=== PATIENT | female | born 1995 ===

== ENCOUNTER 2021-06-10 17:02 | Outpatient (REF) | payer BC, SELFPAY | END 2021-06-10 17:03 | disposition home or self-care (01) | LOC: HO.LNP 17:02 | PROVIDERS: Visit Provider Internal Medicine | DX: N39.0 Urinary tract infection, site not specified (principal); R10.2 Pelvic and perineal pain | CPT/HCPCS: 87086 ==

== ENCOUNTER 2021-09-27 08:14 | Outpatient (REF) | payer BC, SELFPAY ==
[2021-09-27 11:03] LABS: MANUAL DIFF FLAG NO
[2021-09-27 11:22] LABS: Alanine Aminotransferase 14 U/L (0-31); Albumin Level 3.9 g/dL (3.5-5.0); Alkaline Phosphatase 45 U/L (39-117); Anion Gap 10 (12-20); Aspartate Amino Transferase 17 U/L (5-31); Bilirubin Total 0.2 mg/dL (0.0-1.0); Blood Urea Nitrogen 14 mg/dL (9-16); Calcium 9.1 mg/dL (8.4-10.2); Carbon Dioxide 24 mmol/L (22-29); Chloride 109 mmol/L (96-108); Cholesterol 164 mg/dL; Estimated Glomerular Filt Rate > 60; Glucose Fasting 97 mg/dL (60-99); HDL Cholesterol 53 mg/dL; LDL Cholesterol Calculated 100 mg/dl; Potassium 4.5 mmol/L (3.3-5.1); Sodium 138 mmol/L (135-145); Total Protein 6.9 g/dL (6.5-8.0); Triglycerides 58 mg/dL
[2021-09-27 11:25] LABS: Basophils Percent Auto 0.6 % (0-2); Eosinophils Absolute Auto 0.3 X10*3/uL (0.0-0.4); Hematocrit 39.2 % (37.0-47.0); Hemoglobin 12.3 g/dl (12.0-16.0); Imm Gran Abs Auto 0.01 X10*3/uL (0.00-0.03); Imm Gran Pct Auto 0.2 % (0.0-0.4); Mean Corpuscular HGB Conc 31.4 g/dl (31.0-35.0); Mean Corpuscular Hemoglobin 25.4 pg (27.0-33.0); Mean Corpuscular Volume 80.8 fL (80.0-98.0); Mean Platelet Volume 10.1 fL (9.4-12.3); Monocytes Absolute Auto 0.3 X10*3/uL (0.1-1.2); Monocytes Percent Auto 6.4 % (2-11); Neutrophils Absolute Auto 2.3 x10*3/uL (2.0-8.3); Neutrophils Percent Auto 46.8 % (45-73); Platelet Count 361 X10*3/uL (160-400); Red Blood Count 4.85 X10*6/uL (4.20-5.50); Red Cell Distribution Width 12.9 % (11.0-16.0)
[2021-09-27 11:46] LABS: TSH reflex Free T4 0.82 uIU/mL (0.32-4.0)
== END 2021-09-27 08:15 | disposition home or self-care (01) ==
LOC: HO.HMGCLDS 08:14
PROVIDERS: PCP Internal Medicine; Visit Provider Internal Medicine
DX: Z00.01 Encounter for general adult medical examination with abnormal findings (principal); J45.40 Moderate persistent asthma, uncomplicated; E66.09 Other obesity due to excess calories
CPT/HCPCS: 36415; 80053; 80061; 84443; 85025

== ENCOUNTER → 2021-10-24 08:55 | Outpatient (BNVA) | payer BC, SELFPAY | PROVIDERS: PCP Internal Medicine ==

== ENCOUNTER 2021-12-05 12:23 | Outpatient (REF) | payer BC, SELFPAY | END 2021-12-05 12:24 | disposition home or self-care (01) | LOC: HO.10HDL 12:23 | DX: N39.0 Urinary tract infection, site not specified (principal) | CPT/HCPCS: 87086 ==

== ENCOUNTER → 2022-01-23 09:00 | Outpatient (BNVA) | payer BC, SELFPAY | PROVIDERS: PCP Internal Medicine | DX: Z13.89 Encounter for screening for other disorder (principal) ==

== ENCOUNTER 2022-05-20 08:36 | Outpatient (REF) | payer BC, SELFPAY ==
[2022-05-20 09:19] LABS: Binax Internal Control QC Valid; Binax Now Covid-19 Ag Negative (Negative); Binax Performed by: HO.BONILM
== END 2022-05-20 08:37 | disposition home or self-care (01) ==
LOC: HO.HMGCLDS 08:36
PROVIDERS: PCP Internal Medicine; Visit Provider Physician Assistant
DX: Z20.822 Contact with and (suspected) exposure to COVID-19 (principal); J32.9 Chronic sinusitis, unspecified
CPT/HCPCS: 87811; C9803

== ENCOUNTER → 2022-09-02 14:32 | Outpatient (BNVA) | payer BC, SELFPAY | PROVIDERS: PCP Internal Medicine; Visit Provider Urology | DX: N39.0 Urinary tract infection, site not specified (principal); Z91.14 Patient's other noncompliance with medication regimen | CPT/HCPCS: 51798 ==

== ENCOUNTER 2022-10-01 07:36 | Outpatient (REF) | payer BC, SELFPAY ==
[2022-10-01 11:26] LABS: MANUAL DIFF FLAG NO
[2022-10-01 11:40] LABS: Basophils Absolute Auto 0.1 X10*3/uL (0.0-0.2); Basophils Percent Auto 0.9 % (0-2); Eosinophils Absolute Auto 0.2 X10*3/uL (0.0-0.4); Eosinophils Percent Auto 4.2 % (0-4); Hematocrit 39.5 % (37.0-47.0); Hemoglobin 12.5 g/dl (12.0-16.0); Imm Gran Abs Auto 0.01 X10*3/uL (0.00-0.03); Imm Gran Pct Auto 0.2 % (0.0-0.4); Lymphocytes Absolute Auto 2.2 X10*3/uL (1.2-4.9); Mean Corpuscular HGB Conc 31.6 g/dl (31.0-35.0); Mean Corpuscular Hemoglobin 25.2 pg (27.0-33.0); Mean Corpuscular Volume 79.6 fL (80.0-98.0); Mean Platelet Volume 9.8 fL (9.4-12.3); Monocytes Absolute Auto 0.4 X10*3/uL (0.1-1.2); Monocytes Percent Auto 6.4 % (2-11); Neutrophils Absolute Auto 2.8 x10*3/uL (2.0-8.3); Neutrophils Percent Auto 49.3 % (45-73); Platelet Count 418 X10*3/uL (160-400); Red Blood Count 4.96 X10*6/uL (4.20-5.50); Red Cell Distribution Width 13.2 % (11.0-16.0); White Blood Count 5.7 X10*3/uL (4.8-10.8)
[2022-10-01 13:16] LABS: Alanine Aminotransferase 21 U/L (0-31); Alkaline Phosphatase 51 U/L (39-117); Anion Gap 12 (12-20); Aspartate Amino Transferase 21 U/L (5-31); Bilirubin Total 0.3 mg/dL (0.0-1.0); Blood Urea Nitrogen 14 mg/dL (9-16); Calcium 9.3 mg/dL (8.4-10.2); Carbon Dioxide 23 mmol/L (22-29); Chloride 108 mmol/L (96-108); Cholesterol 180 mg/dL; Estimated Glomerular Filt Rate > 60; Glucose Fasting 101 mg/dL (60-99); HDL Cholesterol 67 mg/dL; LDL Cholesterol Calculated 101 mg/dl; Potassium 4.4 mmol/L (3.3-5.1); Sodium 139 mmol/L (135-145); Total Protein 6.9 g/dL (6.5-8.0); Triglycerides 61 mg/dL
== END 2022-10-01 07:37 | disposition home or self-care (01) ==
LOC: HO.HMGCLDS 07:36
PROVIDERS: PCP Internal Medicine; Visit Provider Internal Medicine
DX: Z00.01 Encounter for general adult medical examination with abnormal findings (principal); E66.09 Other obesity due to excess calories; J45.40 Moderate persistent asthma, uncomplicated
CPT/HCPCS: 36415; 80053; 80061; 85025

== ENCOUNTER 2023-10-01 14:34 | Outpatient (AMB) | payer BC, SELFPAY ==
[2023-10-01 14:37] VITALS: BP 120/76; PULSE 81; O2SAT 99; BMI 34.6
--- NOTE | 2023-10-01 14:37 | A.OFFPC_ITS ---
Vital Signs 10/01/23 14:37 Height 5 ft 1 in Weight 183 lb 4 oz BMI 34.6 BP 120/76 Blood Pressure Location Lt brachial Position Sitting Pulse 81 Pulse Source Pulse Oximeter Pulse Oximetry (%) 99 Oxygen Delivery Method Room Air Intake Visit Reasons: annual Allergies shrimp Allergy (Unknown, Verified 10/01/23 14:39) anaphylaxis Medication List - Last Reconciled 10/01/23 by Jessica Ivy MD budesonide-formoterol 160-4.5 mcg/actuation (Symbicort) 2 puffs inhalation BID 30 days Tobacco use date assessed: 10/01/23 Dental Screening Dental Screen Date: 10/01/23 Did you have a dental visit in the last 12 months?: Yes Did you have a dental problem in the last 6 months where you did not have access to dental care?: No Was dental information given to patient?: Patient has dentist HPI annual HPI Details Patient is 27-year-old female came in today for physical exam Patient has asthma and is stable with inhaler she is using it once a day 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 Labs are needed to be done fasting Patient have impaired fasting sugar and her platelets were elevated last visit We will be repeating them. BMI is elevated patient is trying to lose weight Follow-up 1 year physical exam. [facility] Surgical History No pertinent past surgical history Family History Father Cancer Mother HTN (hypertension) CVD (cardiovascular disease) Diabetes mellitus Maternal Grandmother No problems noted. Maternal Grandfather No problems noted. Paternal Grandfather History of heart attack Paternal Grandmother No problems noted. Son No problems noted. Social History Housing: House Patient Tobacco Use Status: Former Tobacco user Years Smoked: 1 year e-Cigarette/Vaping Use: Never Used Current occupational status: employed Cognitive needs: No Hearing needs: No Vision needs: No Questionnaire PHQ-9 Over the last 2 weeks, how often have you been bothered by any of the following problems? 1. Little interest or pleasure in doing things: not at all 2. Feeling down, depressed, or hopeless: not at all 3. Trouble falling or staying asleep, or sleeping too much: not at all 4. Feeling tired or having little energy: several days 5. Poor appetite or overeating: not at all 6. Feeling bad about yourself - or that you are a failure or have let yourself or your family down: not at all 7. Trouble concentrating on things, such as reading the newspaper or watching te levision: not at all 8. Moving or speaking so slowly that other people could have noticed. Or the opposite - being so fidgety or restless that you have been moving around a lot more than usual: not at all 9. Thoughts that you would be better off or of hurting yourself in some way: not at all Total score: 1 Depression Screening Interpretation: Negative Depression Screening Done: Yes 16911 - PHQ-9 Billing: Yes Source: Developed by Drs. Jesse Hayes, Hudson Louis and colleagues, with an educational gutierrez from [employer]. Thrive Questionnaire Date Thrive assessed: 09/29/22 AUDIT C Alcohol Use Questionnaire (AUDIT-C) 1. How often do you have a drink containing alcohol?: Never 3. How often do you have six or more drinks on one occasion?: Never Total Score: 0 Score Reviewed/Action Taken: Yes CANDIE-7 AMB Questionnaire CANDIE-7 Date CANDIE - 7 assessed: 09/29/22 Source: Developed by Drs. Jesse Hayes, Hudson Louis and colleagues, with an educational gutierrez from [employer]. Review of Systems Const Denies chills, Denies fever(s) and Denies headache(s) Eyes Denies blurry vision ENT Denies headache(s), Denies nasal discharge, Denies nasal obstruction, Denies odynophagia and Denies sinus pain Card Denies chest pain at rest and Denies chest pain with activity Resp Denies cough and Denies hemoptysis GI Denies diarrhea, Denies odynophagia, Denies vomiting and Denies hematemesis Reports as per HPI Musc Denies abnormal gait Skin/Breast Reports as per HPI Neuro Denies Neuro-related abnormal movements, Denies Abnormal speech present, Denies abnormal gait, Denies headache(s) and Denies Sensory deficit (Neuro) Psych Denies mood swings and Denies paranoia Endo Reports as per HPI Burke/Lymph Reports as per HPI Aller/Immun Reports as per HPI Physical exam (Primary Care) Vital Signs: Last Vital Signs Pulse 81 10/01/23 14:37 BP 120/76 10/01/23 14:37 Pulse Ox 99 10/01/23 14:37 Oxygen Delivery Method Room Air 10/01/23 14:37 BMI result Body Mass Index 34.6 Tobacco/Smoking Status: Tobacco use Status Tobacco use date assessed 10/01/23 10/01/23 14:39 Patient Tobacco Use Status Former Tobacco user 10/01/23 14:39 e-Cigarette/Vaping Use Never Used 10/01/23 14:39 Depression Screening Interpretation: Negative Thrive Assessment: Date of Thrive Assessment Date Thrive assessed 09/29/22 10/01/23 14:39 Const General: cooperative, comfortable and no acute distress Orientation/consciousness: patient oriented x3 HENMT Head: Yes normocephalic and Yes atraumatic Eyes General: appearance normal, both eyes and all related structures Pupils: Equal, round and reactive pupils present EOM: EOMs intact bilaterally Neck Neck: Yes supple and No lymphadenopathy Thyroid: Thyroid normal Lymphatic: no lymphadenopathy noted Chest Breast/axilla palpation: normal palpation of the breasts Resp Effort & Inspection: normal respiratory effort and able to speak in complete sentences Auscultation: clear to auscultation bilaterally Cardio Heart sounds: S1 normal heart sound present and S2 normal heart sound present GI Palpation (GI): Soft to palpation and nontender Auscultation: normal bowel sounds General: Yes no CVA tenderness Back/Spine/Pelvis Back: no CVA tenderness Skin General skin exam: elasticity normal and turgor normal Neuro General: patient oriented x3 and gait normal Cranial nerves: Yes Equal, round and reactive pupils present Speech: No Abnormal speech present Sensory Exam: No Sensory deficit (Neuro) Coordination: tandem gait normal and Romberg test negative Extrem General: Yes normal exam except as noted and No edema Assessment and Plan Assessment & Plan (1) Encounter for general adult medical examination with abnormal findings: Code(s): Z00.01 - Encounter for general adult medical examination with abnormal findings (2) Obesity due to excess calories: Code(s): E66.09 - Other obesity due to excess calories Qualifiers: Body mass index: BMI 34.0-34.9 Obesity classification: adult class 1 (BMI 30 - 34.9) Serious obesity comorbidity presence: without serious comorbidity Qualified Code(s): E66.09 - Other obesity due to excess calories; Z68.34 - Body mass index [BMI] 34.0-34.9, adult (3) Asthma, moderate persistent: Code(s): J45.40 - Moderate persistent asthma, uncomplicated Qualifiers: Asthma complication type: uncomplicated Qualified Code(s): J45.40 - Moderate persistent asthma, uncomplicated (4) Impaired fasting blood sugar: Code(s): R73.01 - Impaired fasting glucose (5) Thrombocytosis, unspecified: Code(s): D75.839 - Thrombocytosis, unspecified Plan Patient is 27-year-old female came in today for physical exam Patient has asthma and is stable with inhaler she is using it once a day 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 Labs are needed to be done fasting Patient have impaired fasting sugar and her platelets were elevated last visit We will be repeating them. BMI is elevated patient is trying to lose weight Follow-up 1 year physical exam. Orders: Orders Complete Blood Count Auto Diff Today D47.3 - Essential (hemorrhagic) thrombocythemia, E66.09 - Other obesity due to excess calories, J45.40 - Moderate persistent asthma, uncomplicated, R73.01 - Impaired fasting glucose, Z00.01 - Encounter for general adult medical examination with abnormal findings Comprehensive Fowler. Panel Fast Today D47.3 - Essential (hemorrhagic) thrombocythemia, E66.09 - Other obesity due to excess calories, J45.40 - Moderate persistent asthma, uncomplicated, R73.01 - Impaired fasting glucose, Z00.01 - Encounter for general adult medical examination with abnormal findings Lipid Panel Today D47.3 - Essential (hemorrhagic) thrombocythemia, E66.09 - Other obesity due to excess calories, J45.40 - Moderate persistent asthma, uncomplicated, R73.01 - Impaired fasting glucose, Z00.01 - Encounter for general adult medical examination with abnormal findings Referrals [facility] Referral Z01.419 - Encounter for gynecological examination (general) (routine) without abnormal findings Coding Level of Care Code Est Pt Prev Care 18-39y([id number]) Diagnoses Encounter for general adult medical examination with abnormal findings Z00.01 Class 1 obesity due to excess calories without serious comorbidity with body mass index (BMI) of 34.0 to 34.9 in adult E66.09; Z68.34 Body mass index: BMI 34.0-34.9 Obesity classification: adult class 1 (BMI 30 - 34.9) Serious obesity comorbidity presence: without serious comorbidity Moderate persistent asthma without complication J45.40 Asthma complication type: uncomplicated Impaired fasting blood sugar R73.01 Thrombocytosis, unspecified D75.839
== END 2023-10-01 15:29 | disposition home or self-care (01) ==
PROVIDERS: Visit Provider Internal Medicine
DX: Z00.00 Encounter for general adult medical examination without abnormal findings (principal); E66.09 Other obesity due to excess calories; Z68.34 Body mass index [BMI] 34.0-34.9, adult; J45.40 Moderate persistent asthma, uncomplicated; R73.01 Impaired fasting glucose; D75.839 Thrombocytosis, unspecified
CPT/HCPCS: 99395

== ENCOUNTER 2023-10-14 09:05 | Outpatient (REF) | payer BC, SELFPAY ==
[2023-10-14 11:27] LABS: MANUAL DIFF FLAG NO
[2023-10-14 11:34] LABS: Basophils Percent Auto 0.4 % (0-2); Eosinophils Absolute Auto 0.2 X10*3/uL (0.0-0.4); Eosinophils Percent Auto 2.6 % (0-4); Hematocrit 42.1 % (37.0-47.0); Hemoglobin 13.6 g/dl (12.0-16.0); Imm Gran Abs Auto 0.01 X10*3/uL (0.00-0.03); Imm Gran Pct Auto 0.2 % (0.0-0.4); Lymphocytes Absolute Auto 2.4 X10*3/uL (1.2-4.9); Lymphocytes Percent Auto 42.5 % (20-40); Mean Corpuscular HGB Conc 32.3 g/dl (31.0-35.0); Mean Corpuscular Volume 77.4 fL (80.0-98.0); Mean Platelet Volume 10.7 fL (9.4-12.3); Monocytes Absolute Auto 0.3 X10*3/uL (0.1-1.2); Neutrophils Absolute Auto 2.8 x10*3/uL (2.0-8.3); Neutrophils Percent Auto 48.3 % (45-73); Platelet Count 309 X10*3/uL (160-400); Red Blood Count 5.44 X10*6/uL (4.20-5.50); Red Cell Distribution Width 12.8 % (11.0-16.0); White Blood Count 5.7 X10*3/uL (4.8-10.8)
[2023-10-14 11:52] LABS: Alanine Aminotransferase 20 U/L (0-31); Albumin Level 4.1 g/dL (3.5-5.0); Alkaline Phosphatase 53 U/L (39-117); Anion Gap 15 (12-20); Aspartate Amino Transferase 22 U/L (5-31); Bilirubin Total 0.3 mg/dL (0.0-1.0); Blood Urea Nitrogen 10 mg/dL (9-16); Calcium 9.3 mg/dL (8.4-10.2); Carbon Dioxide 22 mmol/L (22-29); Chloride 107 mmol/L (96-108); Cholesterol 168 mg/dL (<200); Estimated Glomerular Filt Rate > 60; Glucose Fasting 80 mg/dL (60-99); HDL Cholesterol 53 mg/dL (>40); LDL Cholesterol Calculated 104 mg/dL (<100); Potassium 4.5 mmol/L (3.3-5.1); Sodium 139 mmol/L (135-145); Total Protein 7.8 g/dL (6.5-8.0); Triglycerides 58 mg/dL (<150)
== END 2023-10-14 09:06 | disposition home or self-care (01) ==
LOC: HO.HMGCLDS 09:05
PROVIDERS: PCP Internal Medicine; Visit Provider Internal Medicine
DX: Z00.01 Encounter for general adult medical examination with abnormal findings (principal); E66.09 Other obesity due to excess calories; R73.01 Impaired fasting glucose; D47.3 Essential (hemorrhagic) thrombocythemia; J45.40 Moderate persistent asthma, uncomplicated
CPT/HCPCS: 36415; 80053; 80061; 85025

== ENCOUNTER 2023-11-17 11:04 | Outpatient (REF) | payer BC, SELFPAY ==
[2023-11-18 11:48] LABS: CT PCR NOT DETECTED (Not Detect.); NG PCR NOT DETECTED (Not Detect.)
[2023-11-18 14:07] LABS: BV Int Neg Control Negative (Negative); BV Int Pos Control Positive (Positive)
== END 2023-11-17 11:05 | disposition home or self-care (01) ==
LOC: HO.LAB 11:04
PROVIDERS: PCP Internal Medicine; Visit Provider Advanced Practice Midwife
DX: Z01.419 Encounter for gynecological examination (general) (routine) without abnormal findings (principal); Z20.2 Contact with and (suspected) exposure to infections with a predominantly sexual mode of transmission
CPT/HCPCS: 0353U; 87480; 87510; 87660; 88142

== ENCOUNTER 2023-11-17 11:04 | Outpatient (AMB) | payer BC, SELFPAY ==
--- OUTSIDE RECORDS SUMMARY | 2023-11-17 11:06 | XMS_ITS | Patient Health Record ---
Author Name Unknown Organization [facility] Address [address] [place] [address] Care Team Providers Care Stepdown Nurse Name Role Phone Jessica Ivy Primary Care Provider Unavailabl e ALLERGIES Allergen (clinical drug ingredient) Drug/Non Drug Allergy documented on EMR Reaction Allergy Type Onset Date Status Shellfish (FN) shrimp (uncoded) anaphylaxis Allergy Active REASON FOR REFERRAL No Information MEDICATIONS Medication SIG (Take, Route, Frequency, Duration) Notes Start Date End Date Status Albuterol Sulfate 108 (90 Base) MCG/ACT 1 puff as needed Inhalation every 4 hrs Active busPIRone HCl 5 MG 1 tablet Orally as needed Active Symbicort 160-4.5 MCG/ACT 2 puffs Inhala tion Twice a day Active SOCIAL HISTORY Sex Assigned At : Social History Observation Description Sex Assigned At Unknown PROBLEMS Problem Type ICD Code Onset Dates Problem Status W/U Status Risk SNOMED Code Notes Problem Hallux valgus of right foot (M20.11) Active confirmed 175355575 Problem Hallux valgus of left foot (M20.12) Active confirmed 148210372 PLAN OF TREATMENT Pending Test Test Name Order Date X ray : Foot, left 3v 11/06/2020 X ray : Foot, right 3v 11/06/2020 Insurance Providers Payer Name Payer Address Payer Phone Subscriber Number Group Number Insured Name Patient Relationship to Insured Coverage Start Date Coverage End Date Blue [employer] and Blue [facility] [address] [place] [phone] [id number] Suman Egan Self - patient is the insured MEDICAL (GENERAL) HISTORY Medical History History ICD Code Asthma Anxiety
--- NOTE | 2023-11-17 11:20 | A.OFFVIS_ITS ---
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 Program Eligibility Specialist Required: No Information Interpreted: clinical only Camera Operator: Camera Operator Present Allergies shrimp Allergy (Unknown, Verified 11/17/23 11:22) anaphylaxis Medication List - Last Reconciled 11/17/23 by Padma Sheth CNM budesonide-formoterol 160-4.5 mcg/actuation (Symbicort) 2 puffs inhalation BID 30 days Is last menstrual period known: Yes Last menstrual period: 10/30/23 Do you need a note to return to daycare/school/sports/work: No HPI 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 She is doing well she uses condoms for control she does not remember having any abnormal Paps though she thinks her last 1 was 3 years ago at [facility] in [place]. She has not really worried about any infections she and her partner of many years are considering conceiving another baby perhaps in late spring. 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 It is sort of regular cycles and has been trying to tell when she ovulates but she has not sure if the appt is accurate and she thought that it was when she gets a whitish discharge. [facility] Surgical History No pertinent past surgical history Family History Father Cancer Mother HTN (hypertension) CVD (cardiovascular disease) Diabetes mellitus Maternal Grandmother No problems noted. Maternal Grandfather No problems noted. Paternal Grandfather History of heart attack Paternal Grandmother No problems noted. Son No problems noted. Social History Housing: House Patient Tobacco Use Status: Former Tobacco user Years Smoked: 1 year e-Cigarette/Vaping Use: Never Used Current occupational status: employed Cognitive needs: No Hearing needs: No Vision needs: No Female Reproductive History Menstrual Age of Menarche: 10 Duration of menses: 6-7 days Date of last menstrual period: 10/30/23 control method: condoms Total pregnancies: 1 Full term: 1 Date of last pap smear: 10/18/21 (per patient ''neg'') History of abnormal pap smear: No Physical Exam Vital Signs: Last Vital Signs BP 128/70 11/17/23 11:21 BMI result Body Mass Index 34.4 Const General: healthy appearing, comfortable, no acute distress, well developed and alert Nutritional Appearance: average body habitus Orientation/consciousness: patient oriented x3 Limitations: no limitations HEENT Head: Yes normocephalic Neck Neck: Yes normal visual inspection Thyroid: Thyroid normal Chest Chest palpation & inspection: normal inspection of the chest Breast/axilla inspection: normal inspection of the breasts and normal inspection of the axillae Breast/axilla palpation: normal palpation of the breasts and normal palpation of the axillae Resp Effort & Inspection: normal respiratory effort GI Inspection: Yes normal to inspection, No Abdominal wall edema and No distended Palpation (GI): Soft to palpation and nontender Other: External exam within normal limits vagina pink and moist cervix multiparous with scant white discharge not really consistent with midcycle. Cervix mobile nontender uterus midposition not enlarged nontender no adnexal enlargement good tone with Kegel. General: Yes bladder normal to palpation External Female Exam: normal external appearance and normal appearance of the urethra Speculum Exam - Vagina: normal appearance of the vagina, normal palpation and normal vaginal discharge Speculum Exam - Cervix: normal appearance of the cervix, normal palpation and nontender Bimanual exam- vagina & uterus: normal bimanual exam, normal palpation, uterine size normal, bladder normal to palpation, consistency normal, normal palpation, uterine mobility normal, uterine shape normal, No Cervical tenderness present, non-tender and no cervical motion tenderness Bimanual Exam- Adnexa, other: normal adnexae, no masses, normal and No adnexal tenderness Neuro General: patient oriented x3 Assessment & Plan Assessment & Plan (1) Well woman exam with routine gynecological exam: Code(s): Z01.419 - Encounter for gynecological examination (general) (routine) without abnormal findings (2) Patient desires : Code(s): Z31.9 - Encounter for procreative management, unspecified (3) Encounter for counseling and instruction in natural family planning to avoid : Code(s): Z30.02 - Counseling and instruction in natural family planning to avoid (4) Obesity due to excess calories: Code(s): E66.09 - Other obesity due to excess calories Qualifiers: Obesity classification: adult class 1 (BMI 30 - 34.9) Serious obesity comorbidity presence: without serious comorbidity Body mass index: BMI 34.0- 34.9 Qualified Code(s): E66.09 - Other obesity due to excess calories; Z68.34 - Body mass index [BMI] 34.0-34.9, adult Plan -----Discussed in this visit the following: healthy balanced diet, regular and consistent exercise, getting recommended health screens, doing the best she can for her particular health concerns, kegel exercises, pap smear screening and followup recommendations, mammography screening and SBE, normal changes in cycles in her life stage--- .----I reviewed available options for Control Methods and their associated side effect profiles. In particular, we discussed the method most of interest to her. Discussed signs of ovulation including fertile appearing mucus, libido changes, breast changes, ovulatory pain and twinges, and the optimal /most risky times to become . Reviewed that menstrual cycles do not obey the printed calendar, but rather follow the body's own cycle discussed what can sometimes happen if the cycle is interrupted by other health events such as anovulatory cycles. Discussed other metabolic changes that have a very profound effect on menstrual cycles including weight and the increased hormones that occur in that setting. Reviewed taking multivitamins with folic acid her efforts to lose weight and get healthier and planning of . Reviewed also that we do not have a birthing center anymore and that given that she lives in [place] her birthing needs would better be served by either [facility] or [facility] and that we while we do care were sending women to [facility] to deliver. Coding Level of Care Code New Pt Prev Care [id number]([id number] Diagnoses Well woman exam with routine gynecological exam Z01.419 Patient desires Z31.9 Encounter for counseling and instruction in natural family planning to avoid Z30.02 Class 1 obesity due to excess calories without serious comorbidity with body mass index (BMI) of 34.0 to 34.9 in adult E66.09; Z68.34 Obesity classification: adult class 1 (BMI 30 - 34.9) Serious obesity comorbidity presence: without serious comorbidity Body mass index: BMI 34.0-34.9
[2023-11-17 11:21] VITALS: BP 128/70; BMI 34.4
== END 2023-11-17 12:42 | disposition home or self-care (01) ==
LOC: HO.HWSM 11:04
PROVIDERS: PCP Internal Medicine; Visit Provider Advanced Practice Midwife
DX: Z01.419 Encounter for gynecological examination (general) (routine) without abnormal findings (principal); Z31.9 Encounter for procreative management, unspecified; Z30.02 Counseling and instruction in natural family planning to avoid pregnancy; E66.09 Other obesity due to excess calories; Z68.34 Body mass index [BMI] 34.0-34.9, adult
CPT/HCPCS: 99385

== ENCOUNTER 2024-05-05 12:14 | Outpatient (AMB) | payer BC, SELFPAY ==
[2024-05-05 12:18] VITALS: BP 118/72; PULSE 85; O2SAT 99; BMI 32.9
--- NOTE | 2024-05-05 12:18 | MHC.PC.OV ---
Vital Signs 05/05/24 12:18 Height 5 ft 1 in Weight 174 lb 4 oz BMI 32.9 BP 118/72 Blood Pressure Location Rt brachial Position Sitting Pulse 85 Pulse Source Pulse Oximeter Pulse Oximetry (%) 99 Oxygen Delivery Method Room Air Intake Visit Reasons: Pain,fmla paperwork Allergies shrimp Allergy (Unknown, Verified 05/05/24 12:21) anaphylaxis Tobacco use date assessed: 05/05/24 Dental Screening Dental Screen Date: 05/05/24 Did you have a dental visit in the last 12 months?: Yes Did you have a dental problem in the last 6 months where you did not have access to dental care?: No Was dental information given to patient?: Patient has dentist HPI Pain,fmla paperwork HPI Details Patient is 28-year-old female who suffers from bunion both feet and is in need of surgery which she is trying to avoid 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 Asthma is stable patient is taking her inhalers [facility] Surgical History No pertinent past surgical history Family History Father Cancer Mother HTN (hypertension) CVD (cardiovascular disease) Diabetes mellitus Maternal Grandmother No problems noted. Maternal Grandfather No problems noted. Paternal Grandfather History of heart attack Paternal Grandmother No problems noted. Son No problems noted. Social History Housing: House Patient Tobacco Use Status: Former Tobacco user Years Smoked: 1 year e-Cigarette/Vaping Use: Never Used Current occupational status: employed Cognitive needs: No Hearing needs: No Vision needs: No Female Reproductive History Menstrual Age of Menarche: 10 Questionnaire PHQ-9 Over the last 2 weeks, how often have you been bothered by any of the following problems? 1. Little interest or pleasure in doing things: not at all 2. Feeling down, depressed, or hopeless: not at all 3. Trouble falling or staying asleep, or sleeping too much: not at all 4. Feeling tired or having little energy: not at all 5. Poor appetite or overeating: not at all 6. Feeling bad about yourself - or that you are a failure or have let yourself or your family down: not at all 7. Trouble concentrating on things, such as reading the newspaper or watching television: not at all 8. Moving or speaking so slowly that other people could have noticed. Or the opposite - being so fidgety or restless that you have been moving around a lot more than usual: not at all 9. Thoughts that you would be better off or of hurting yourself in some way: not at all Total score: 0 Depression Screening Interpretation: Negative Depression Screening Done: Yes 70725 - PHQ-9 Billing: Yes Source: Developed by Drs. Jesse Hayes, Annika Becerril, Hudson Hollis and colleagues, with an educational gutierrez from [employer]. Thrive Questionnaire Date Thrive assessed: 05/05/24 I am a: Patient What is your living situation today?: I have a steady place to live Within the past 12 months, did the food you bought not last and you didn't have the money to get more?: I choose not to answer this question Within the past 12 months, did you worry whether your food would run out before you got money to buy more?: I choose not to answer this question Do you have trouble paying for medicines?: No Do you have trouble getting transportation to medical appointments?: No Do you have trouble paying your heating and electricity bill?: No Do you have trouble taking care of your child, family member or friend?: No Do you have trouble with day-to-day activities such as bathing, preparing meals, shopping, managing finances, etc.?: No Are you currently unemployed and looking for a job?: No Are you interested in more education?: No Please select the resources that you would like help with: Housing/Half-Way Currently or been in a relationship where the following occur: I choose not to answer THRIVE Score: 0 AUDIT C Alcohol Use Questionnaire (AUDIT-C) 1. How often do you have a drink containing alcohol?: Monthly or less 2. How many drinks containing alcohol do you have on a typical day when you are drinking?: 1 or 2 3. How often do you have six or more drinks on one occasion?: Never Total Score: 1 Score Reviewed/Action Taken: Yes CANDIE-7 AMB Questionnaire CANDIE-7 Date CANDIE - 7 assessed: 05/05/24 Feeling nervous, anxious, or on edge: 0 = Not at all Not being able to stop or control worryin = Not at all Worrying too much about different things: 0 = Not at all Trouble relaxin = Not at all Being so restless that it is hard to sit still: 0 = Not at all Becoming easily annoyed or irritable: 0 = Not at all Feeling afraid as if something awful might happen: 0 = Not at all Total CANDIE-7 score (0-4 normal; 5-9 mild; 10-14 moderate; 15-21 severe): 0 Source: Developed by Drs. Jesse Hayes, Annika Becerril, Hudson Hollis and colleagues, with an educational gutierrez from [employer]. CANDIE-7 Assessment Billing CANDIE-7 Assessment Tool: CADNIE-7 Assessment 62557 Review of Systems Const Denies chills and Denies fever(s) ENT Denies epistaxis and Denies nasal discharge Card Denies chest pain Resp Denies chest congestion, Denies cough and Denies hemoptysis GI Denies diarrhea and Denies nausea Skin/Breast Denies rash Neuro Reports no additional complaints Psych Reports no additional complaints Endo Reports no additional complaints Physical exam (Primary Care) Vital Signs: Last Vital Signs Pulse 85 05/05/24 12:18 BP 118/72 05/05/24 12:18 Pulse Ox 99 05/05/24 12:18 Oxygen Delivery Method Room Air 05/05/24 12:18 BMI result Body Mass Index 32.9 Tobacco/Smoking Status: Tobacco use Status Tobacco use date assessed 05/05/24 05/05/24 12:21 Patient Tobacco Use Status Former Tobacco user 05/05/24 12:21 e-Cigarette/Vaping Use Never Used 05/05/24 12:21 PHQ-9: PHQ-9 Score PHQ-9: Total score 0 05/05/24 12:21 Depression Screening Interpretation: Negative Thrive Assessment: Date of Thrive Assessment Date Thrive assessed 05/05/24 05/05/24 12:21 Currently or been in a relationship where the following occur: I choose not to answer Const General: cooperative, comfortable and no acute distress Orientation/consciousness: patient oriented x3 HENMT Head: Yes normocephalic Eyes General: appearance normal, both eyes and all related structures Neck Neck: Yes supple Resp Effort & Inspection: normal respiratory effort, no cough and no stridor Cardio Rhythm: regular rhythm Heart sounds: S1 normal heart sound present and S2 normal heart sound present Skin General skin exam: turgor normal Neuro General: patient oriented x3, tone normal and moves all extremities Extrem Right lower extremity: no edema Left lower extremity: no edema Assessment and Plan Assessment & Plan (1) Bilateral bunions: Code(s): M21.611 - Bunion of right foot; M21.612 - Bunion of left foot (2) Asthma, moderate persistent: Code(s): J45.40 - Moderate persistent asthma, uncomplicated Qualifiers: Asthma complication type: uncomplicated Qualified Code(s): J45.40 - Moderate persistent asthma, uncomplicated Plan Patient is 28-year-old female who suffers from bunion both feet and is in need of surgery which she is trying to avoid She works as [employer]% and is on her feet all day Patient would like to have her FMLA paperwork continued About twice a month she takes a day of when her feet are 2 sore It started around 02/10/2023 and will continue for another year Paperwork filled till 02/10/2025 She has already seen non destructive testing technician last year. Asthma is stable patient is taking her inhalers Coding Level of Care Code Est Pt Level 3 (13849) Diagnoses Bilateral bunions M21.611; M21.612 Moderate persistent asthma without complication J45.40 Asthma complication type: uncomplicated Additional Codes CANDIE-7 Assessment Billing - CANDIE-7 Assessment Tool: CANDIE-7 Assessment 17984 ([id number])
== END 2024-05-05 13:44 | disposition home or self-care (01) ==
PROVIDERS: PCP Internal Medicine; Visit Provider Internal Medicine
DX: M21.611 Bunion of right foot (principal); M21.612 Bunion of left foot; J45.40 Moderate persistent asthma, uncomplicated
CPT/HCPCS: 99213

== ENCOUNTER 2024-05-29 11:19 | Outpatient (REF) | payer BC, SELFPAY ==
--- NOTE | ~2024-05-29 | US_ITS ---
EXAMINATION: US OBSTETRICAL ULTRASOUND CLINICAL INFORMATION: Supervision of normal , confirm dating and intrauterine COMPARISON: None available. LMP: 04/14/2024. Gestational age by maternal dates is 6 weeks 3 days. Estimated date of delivery by maternal dates is 01/19/2025. TECHNIQUE: Sonographic imaging of the pelvis performed using transabdominal transducers. FINDINGS: There is a single intrauterine gestational sac with visible yolk sac, embryo/fetus, and cardiac activity. There is no significant subchorionic hemorrhage or hematoma. HR: 147 beats per minute. CRL (crown rump length): 0.5 cm (6 weeks 3 days). TAMMI (estimated date of delivery): 01/19/2025 MATERNAL ADNEXA: The right maternal ovary measures 3.5 x 2.4 x 2.5 cm. The left maternal ovary measures 2.4 x 1.8 x 2.5 cm. There is no significant maternal adnexal mass. No maternal pelvic ascites. US/US OB <= 14 weeks fetus IMPRESSION: 1. Single intrauterine gestation with ultrasound gestational age of 6 weeks 3 days . 2. Estimated date of delivery is 01/19/2025 . Electronically signed by: Prashanth Hernandez MD 06/08/2024 05:19 PM EDT
== END 2024-05-29 11:20 | disposition home or self-care (01) ==
LOC: HO.US 11:19
PROVIDERS: PCP Internal Medicine; Visit Provider Advanced Practice Midwife
DX: Z34.91 Encounter for supervision of normal pregnancy, unspecified, first trimester (principal); Z3A.01 Less than 8 weeks gestation of pregnancy
CPT/HCPCS: 76801

== ENCOUNTER 2024-11-21 13:57 | Outpatient (AMB) | payer BC, SELFPAY ==
[2024-11-21 14:01] VITALS: BP 120/70; PULSE 103; TEMP 36.6; O2SAT 98; BMI 43.1
--- NOTE | 2024-11-21 14:01 | A.OFFPC_ITS ---
Vital Signs 11/21/24 14:01 Height 5 ft 1 in Weight 228 lb BMI 43.1 BP 120/70 Blood Pressure Location Lt brachial Position Sitting Pulse 103 H Pulse Source Pulse Oximeter Temp 98 F Temp Source Oral Pulse Oximetry (%) 98 Oxygen Delivery Method Room Air Intake Visit Reasons: Annual PE Patient : Yes Allergies shrimp Allergy (Unknown, Verified 11/21/24 14:01) anaphylaxis Medication List - Last Reconciled 11/21/24 by Jessica Ivy MD budesonide-formoterol 160-4.5 mcg/actuation (Symbicort) 2 puffs inhalation BID 30 days Tobacco use date assessed: 05/05/24 Dental Screening Dental Screen Date: 05/05/24 HPI Annual PE HPI Details - The patient is a 28-year-old female pr esenting with routine physical exam Currently patient is , date of delivery in January for - Asthma is well-controlled with Symbico rt, and the patient reports no shortness of breath or breathing difficulties. - Labs were performed in 2022, and futur e labs are deferred until after delivery. 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 Patient Instructions - Schedule follow-up in six months post- delivery. - Schedule an annual physical exam in . Review of Systems - Respiratory: Denies shortness of breat h. - Gastrointestinal: Denies nausea, vomit ing. - Musculoskeletal: Denies joint aches, p ains. - EENT: Denies sore throat, ear problems . - Dermatologic: Denies rashes or moles. - General: No fever no chills - Neurological: No headaches no dizzin ess - Ear nose throat: No sore throat no hearing difficulty no ear pain - Cardiovascular: No syncope, no chest pain, no palpitations - Endocrine: No polyuria polydipsia no heat intolerance - Genitourinary: No dysuria Physical Exam General: Cooperative, healthy appearing, comfortable, no acute distress Orientation: Patient oriented x3 Limitations: None Head: Normal to inspection Ears: Within normal limit visually, no problems reported Nose: Normal external nose present Face and sinus: Normal facial exam Eyes: Appearance normal, extraocular movement intact pupils reactive Neck: Normal visual inspection and supple Respiratory: Normal respiratory effort and able to speak in complete sentences. Clear to auscultation, no stridor Cardiovascular: S1 and S2 GI: Normal to inspection. Soft to palpation and nontender Skin: Turgor normal, no acute findings, no rashes or moles that need to be checked Neuro: Patient oriented x3, motor sensory intact, balance intact, tandem pass Extremities: Normal to inspection [facility] Surgical History No pertinent past surgical history Family History Father Cancer Mother HTN (hypertension) CVD (cardiovascular disease) Diabetes mellitus Maternal Grandmother No problems noted. Maternal Grandfather No problems noted. Paternal Grandfather History of heart attack Paternal Grandmother No problems noted. Son No problems noted. Social History Housing: House Patient Tobacco Use Status: Former Tobacco user Years Smoked: 1 year e-Cigarette/Vaping Use: Never Used Current occupational status: employed Cognitive needs: No Hearing needs: No Vision needs: No Female Reproductive History Menstrual Age of Menarche: 10 Questionnaire PHQ-9 Over the last 2 weeks, how often have you been bothered by any of the following problems? 1. Little interest or pleasure in doing things: not at all 2. Feeling down, depressed, or hopeless: not at all 3. Trouble falling or staying asleep, or sleeping too much: not at all 4. Feeling tired or having little energy: more than half the days 5. Poor appetite or overeating: not at all 6. Feeling bad about yourself - or that you are a failure or have let yourself or your family down: not at all 7. Trouble concentrating on things, such as reading the newspaper or watching television: not at all 8. Moving or speaking so slowly that other people could have noticed. Or the opposite - being so fidgety or restless that you have been moving around a lot more than usual: not at all 9. Thoughts that you would be better off or of hurting yourself in some way: not at all Total score: 2 Depression Screening Interpretation: Negative Depression Screening Done: Yes 28568 - PHQ-9 Billing: Yes Source: Developed by Drs. Jesse Hayes, Annika Becerril, Hudson Hollis and colleagues, with an educational gutierrez from [employer]. Thrive Questionnaire Date Thrive assessed: 05/05/24 I am a: Patient What is your living situation today?: I have a steady place to live Within the past 12 months, did the food you bought not last and you didn't have the money to get more?: Never true Within the past 12 months, did you worry whether your food would run out before you got money to buy more?: Never true Do you have trouble paying for medicines?: No Do you have trouble getting transportation to medical appointments?: No Do you have trouble paying your heating and electricity bill?: No Do you have trouble taking care of your child, family member or friend?: No Do you have trouble with day-to-day activities such as bathing, preparing meals, shopping, managing finances, etc.?: No Are you currently unemployed and looking for a job?: No Are you interested in more education?: No Please select the resources that you would like help with: None Currently or been in a relationship where the following occur: No concerns reported THRIVE Score: 0 AUDIT C Alcohol Use Questionnaire (AUDIT-C) 1. How often do you have a drink containing alcohol?: Monthly or less 2. How many drinks containing alcohol do you have on a typical day when you are drinking?: 1 or 2 3. How often do you have six or more drinks on one occasion?: Never Total Score: 1 CANDIE-7 AMB Questionnaire CANDIE-7 Date CANDIE - 7 assessed: 05/05/24 Feeling nervous, anxious, or on edge: 0 = Not at all Not being able to stop or control worryin = Not at all Worrying too much about different things: 0 = Not at all Trouble relaxin = Not at all Being so restless that it is hard to sit still: 0 = Not at all Becoming easily annoyed or irritable: 0 = Not at all Feeling afraid as if something awful might happen: 0 = Not at all Total CANDIE-7 score (0-4 normal; 5-9 mild; 10-14 moderate; 15-21 severe): 0 Source: Developed by Drs. Jesse Hayes, Annika Becerril, Hudson Hollis and colleagues, with an educational gutierrez from [employer]. Physical exam (Primary Care) Vital Signs: Last Vital Signs Temp 98 F 11/21/24 14:01 Pulse 103 H 11/21/24 14:01 BP 120/70 11/21/24 14:01 Pulse Ox 98 11/21/24 14:01 Oxygen Delivery Method Room Air 11/21/24 14:01 BMI result Body Mass Index 43.1 Tobacco/Smoking Status: Tobacco use Status Tobacco use date assessed 05/05/24 11/21/24 14:01 Patient Tobacco Use Status Former Tobacco user 11/21/24 14:01 e-Cigarette/Vaping Use Never Used 11/21/24 14:01 Depression Screening Interpretation: Negative Thrive Assessment: Date of Thrive Assessment Date Thrive assessed 05/05/24 11/21/24 14:01 Currently or been in a relationship where the following occur: No concerns reported Coding Level of Care Code Est Pt Prev Care 18-39y(17342) Diagnoses Adult general medical examination Z00.00 Additional Codes PHQ-9 - 52646 - PHQ-9 Billing: Yes ([id number]) Assessment & Plan Assessment & Plan (1) Adult general medical examination: Code(s): Z00.00 - Encounter for general adult medical examination without abnormal findings Category: Medical Plan - The patient is a 28-year-old female presenting with routine physical exam Currently patient is , date of delivery in January for - Asthma is well-controlled with Symbicort, and the patient reports no shortness of breath or breathing difficulties. - Labs were performed in 2022, and future labs are deferred until after delivery. 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 Patient Instructions - Schedule follow-up in six months post-delivery. - Schedule an annual physical exam in one year.
--- OUTSIDE RECORDS SUMMARY | 2024-11-21 14:04 | XMS_ITS | Continuity of Care Document ---
Author Organization [facility] Sandra rosss [facility] Address [address], [address] [place] [address]- Care Team Providers Care Proof Passer Name Role Phone Not on Staff, PCP Primary Care Physician Unavail able Encounter [facility] [place] [facility] Date(s): 11/03/24 - 11/10/24 [facility] Sandra Butlers [address], [address] [place] [address]- Attending Physician: Not on Staff, Attending MD Referring Physician: uQiana Alcala MD Encounter Type: Office Visit Allergies, Adverse Reactions, Alerts Substance Criticality Severity Reaction Reaction Severity Status Shrimp Active Egg Allergy Active Problem List Condition Confirmation Course Effective Dates Status Health St atus Informant Asthma Confirmed Active Alpha thalassemia silent carrier Confirmed Active Family history of diabetes mellitus Confirmed Active Family history of hypertension Confirmed Active Vital Signs Most recent to oldest [Reference Range]: 1 2 Weight 102.2 kg (11/03/24 9:29 AM) Pulse Rate [55-90 bpm] 108 bpm *H* (11/03/24 9:59 AM) Blood Pressure [90-138/55-84 mm Hg] 132/ 63mm Hg (11/03/24 9:59 AM) 139/67mm Hg *H* (11/03/24 9:29 AM) Blood pressure sites Arm, left (11/03/24 9:59 AM) Arm, right (11/03/24 9:29 AM) Dry Weight 102.2 kg (11/03/24 9:29 AM) Weight Obtained Via Standing scale (11/03/24 9:29 AM) Dry Weight Obtained Via Standing scale (11/03/24 9:29 AM) Social History Social History Type Response Tobacco Use: 4 or less cigar ettes(less than 1/4 pack)/day in last 30 days. Sex Sex Representation Female (finding) Patient Care team information Care Team Personnel Name: Benja Hubersami Position: [facility] Outreach Member Role: [employer] Consulting Physician Name: Not on Staff, PCP Position: [facility] Physician (General Medicine) Member Role: PCP Care Team Related Persons Name: DERRELL VELA Name: DORIAN KNIGHT Insurance Providers Guarantor name: NA Health Plan Information #: 1 Payer: [employer] Member Number: [id number] Policy Number: NA Group Number: NA Health Plan Information #: 2 Payer: [employer] Member Number: [id number] Policy Number: NA Group Number: NA
== END 2024-11-21 14:19 | disposition home or self-care (01) ==
PROVIDERS: PCP Internal Medicine; Visit Provider Internal Medicine
DX: Z00.00 Encounter for general adult medical examination without abnormal findings (principal)

== ENCOUNTER → 2024-11-21 13:57 | Outpatient (BNVA) | payer BC, SELFPAY | PROVIDERS: PCP Internal Medicine; Visit Provider Internal Medicine | DX: Z00.00 Encounter for general adult medical examination without abnormal findings (principal); O99.519 Diseases of the respiratory system complicating pregnancy, unspecified trimester; J45.909 Unspecified asthma, uncomplicated; Z3A.00 Weeks of gestation of pregnancy not specified | CPT/HCPCS: 96127 ==

== ENCOUNTER 2025-06-19 09:58 | Outpatient (AMB) | payer BC, SELFPAY ==
--- NOTE | 2025-06-19 10:02 | A.OFFPC_ITS ---
Vital Signs 06/19/25 10:03 Height 5 ft 1 in Weight 216 lb BMI 40.8 BP 118/70 Blood Pressure Location Lt brachial Position Sitting Pulse 80 Pulse Source Pulse Oximeter Pulse Oximetry (%) 98 Oxygen Delivery Method Room Air Intake Visit Reasons: 6m f/u Allergies shrimp Allergy (Unknown, Verified 06/19/25 10:03) anaphylaxis Medication List - Last Reconciled 06/19/25 by Jessica Ivy MD budesonide-formoterol 160-4.5 mcg/actuation (Symbicort) 2 puffs inhalation BID 30 days Tobacco use date assessed: 06/19/25 Dental Screening Dental Screen Date: 06/19/25 Did you have a dental visit in the last 12 months?: Yes Did you have a dental problem in the last 6 months where you did not have access to dental care?: No Was dental information given to patient?: Patient has dentist HPI 6m f/u HPI Details Chief Complaint The patient presents for a six-month follow-up on asthma management. History of Present Illness The patient is a 29-year-old female presenting with asthma management. Asthma: - The patient has a history of asthma, w hich she reports as being more problematic during the winter months. - She occasionally uses an inhaler but a dmits to not using it regularly. - She does not report any current cough, wheezing, or shortness of breath. - Lung examinations in prior evaluations have shown clear results. 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 - She reports walking daily as part of h er job. - The patient has lost weight, from 228 lbs in November to 216 lbs, citing intentional efforts towards weight management. - She is trying to maintain a healthy di et. Problem List - Asthma - history of impaired fasting sugar - morbid obesity with BMI of 40.8 Patient Instructions - Continue the current asthma management plan. - Use inhaler as needed. - Complete fasting laboratory tests befo re the upcoming November appointment. - Maintain current exercise and dietary habits. - Walk in during business hours for lab work. Review of Systems - Respiratory: Denies cough, wheezing, a nd shortness of breath. - General: No fever no chills - Neurological: No headaches no dizziness - Ear nose throat: No sore throat no hearing difficulty no ear pain - Cardiovascular: No syncope, no chest pain, no palpitations - Gastrointestinal: No nausea vomiting or diarrhea - Endocrine: No polyuria polydipsia no heat intolerance - Genitourinary: No dysuria , no blood in urine Physical Exam General: No acute distress, weight loss from 228 to 216 pounds HEENT: No acute findings Neck: Supple Respiratory system: Lungs are clear, able to talk in full sentences, no audible wheeze Cardiovascular: S1-S2 regular in rate and rhythm Gastrointestinal: No pain Extremities: No new findings 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 Maternal Grandfather No problems noted. Paternal Grandfather History of heart attack Paternal Grandmother No problems noted. Son No problems noted. Social History Housing: House Patient Tobacco Use Status: Former Tobacco user Years Smoked: 1 year e-Cigarette/Vaping Use: Never Used Current occupational status: employed Cognitive needs: No Hearing needs: No Vision needs: No Female Reproductive History Menstrual Age of Menarche: 10 Questionnaire PHQ-9 Over the last 2 weeks, how often have you been bothered by any of the following problems? 1. Little interest or pleasure in doing things: not at all 2. Feeling down, depressed, or hopeless: not at all 3. Trouble falling or staying asleep, or sleeping too much: not at all 4. Feeling tired or having little energy: more than half the days 5. Poor appetite or overeating: not at all 6. Feeling bad about yourself - or that you are a failure or have let yourself or your family down: not at all 7. Trouble concentrating on things, such as reading the newspaper or watching television: not at all 8. Moving or speaking so slowly that other people could have noticed. Or the opposite - being so fidgety or restless that you have been moving around a lot more than usual: not at all 9. Thoughts that you would be better off or of hurting yourself in some way: not at all Total score: 2 Depression Screening Interpretation: Negative Depression Screening Done: Yes 49122 - PHQ-9 Billing: Yes Source: Developed by Drs. Jesse Hayes, Hudson Louis and colleagues, with an educational gutierrez from [employer]. Thrive Questionnaire Date Thrive assessed: 11/21/24 I am a: Patient What is your living situation today?: I have a steady place to live Within the past 12 months, did the food you bought not last and you didn't have the money to get more?: Never true Within the past 12 months, did you worry whether your food would run out before you got money to buy more?: Never true Do you have trouble paying for medicines?: No Do you have trouble getting transportation to medical appointments?: No Do you have trouble paying your heating and electricity bill?: No Do you have trouble taking care of your child, family member or friend?: No Do you have trouble with day-to-day activities such as bathing, preparing meals, shopping, managing finances, etc.?: No Are you currently unemployed and looking for a job?: No Are you interested in more education?: No Please select the resources that you would like help with: None Currently or been in a relationship where the following occur: No concerns reported THRIVE Score: 0 CANDIE-7 AMB Questionnaire CANDIE-7 Date CANDIE - 7 assessed: 06/19/25 Feeling nervous, anxious, or on edge: 0 = Not at all Not being able to stop or control worryin = Not at all Worrying too much about different things: 0 = Not at all Trouble relaxin = Not at all Being so restless that it is hard to sit still: 0 = Not at all Becoming easily annoyed or irritable: 0 = Not at all Feeling afraid as if something awful might happen: 0 = Not at all Total CANDIE-7 score (0-4 normal; 5-9 mild; 10-14 moderate; 15-21 severe): 0 Source: Developed by Drs. Jesse Hayes, Hudson Louis and colleagues, with an educational gutierrez from [employer]. CANDIE-7 Assessment Billing CANDIE-7 Assessment Tool: CANDIE-7 Assessment 10625 Physical exam (Primary Care) Vital Signs: Last Vital Signs Pulse 80 06/19/25 10:03 BP 118/70 06/19/25 10:03 Pulse Ox 98 06/19/25 10:03 Oxygen Delivery Method Room Air 06/19/25 10:03 BMI result Body Mass Index 40.8 Tobacco/Smoking Status: Tobacco use Status Tobacco use date assessed 06/19/25 06/19/25 10:06 Patient Tobacco Use Status Former Tobacco user 06/19/25 10:02 e-Cigarette/Vaping Use Never Used 06/19/25 10:02 PHQ-9: PHQ-9 Score PHQ-9: Total score 2 06/19/25 10:06 Depression Screening Interpretation: Negative Thrive Assessment: Date of Thrive Assessment Date Thrive assessed 11/21/24 06/19/25 10:02 Currently or been in a relationship where the following occur: No concerns reported Coding Level of Care Code Est Pt Level 3 (31622) Diagnoses Moderate persistent asthma without complication J45.40 Asthma complication type: uncomplicated Impaired fasting blood sugar R73.01 Morbid obesity due to excess calories E66.01 Additional Codes CANDIE-7 Assessment Billing - CANDIE-7 Assessment Tool: CANDIE-7 Assessment 75719 ([id number]) PHQ-9 - 72578 - PHQ-9 Billing: Yes ([id number]) Assessment & Plan Assessment & Plan (1) Asthma, moderate persistent: Code(s): J45.40 - Moderate persistent asthma, uncomplicated Category: Medical Qualifiers: Asthma complication type: uncomplicated Qualified Code(s): J45.40 - Moderate persistent asthma, uncomplicated (2) Impaired fasting blood sugar: Code(s): R73.01 - Impaired fasting glucose Category: Medical (3) Morbid obesity due to excess calories: Code(s): E66.01 - Morbid (severe) obesity due to excess calories Category: Medical Plan Chief Complaint The patient presents for a six-month follow-up on asthma management. History of Present Illness The patient is a 29-year-old female presenting with asthma management. Asthma: - The patient has a history of asthma, which she reports as being more problematic during the winter months. - She occasionally uses an inhaler but admits to not using it regularly. - She does not report any current cough, wheezing, or shortness of breath. - Lung examinations in prior evaluations have shown clear results. 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 - She reports walking daily as part of her job. - The patient has lost weight, from 228 lbs in November to 216 lbs, citing intentional efforts towards weight management. - She is trying to maintain a healthy diet. Problem List - Asthma - history of impaired fasting sugar - morbid obesity with BMI of 40.8 Patient Instructions - Continue the current asthma management plan. - Use inhaler as needed. - Complete fasting laboratory tests before the upcoming November appointment. - Maintain current exercise and dietary habits. - Walk in during business hours for lab work. Orders: Orders Complete Blood Count Auto Diff Today E66.01 - Morbid (severe) obesity due to excess calories, J45.40 - Moderate persistent asthma, uncomplicated, R73.01 - Impaired fasting glucose TSH reflex Free T4 Today E66.01 - Morbid (severe) obesity due to excess calories, J45.40 - Moderate persistent asthma, uncomplicated, R73.01 - Impaired fasting glucose Comprehensive [place]. Panel Fast Today E66.01 - Morbid (severe) obesity due to excess calories, J45.40 - Moderate persistent asthma, uncomplicated, R73.01 - Impaired fasting glucose Lipid Panel Today E66.01 - Morbid (severe) obesity due to excess calories, J45.40 - Moderate persistent asthma, uncomplicated, R73.01 - Impaired fasting glucose Vitamin D 25-OH (D2 and D3) Today E66.01 - Morbid (severe) obesity due to excess calories, J45.40 - Moderate persistent asthma, uncomplicated, R73.01 - Impaired fasting glucose
[2025-06-19 10:03] VITALS: BP 118/70; PULSE 80; O2SAT 98; BMI 40.8
== END 2025-06-19 15:31 | disposition home or self-care (01) ==
LOC: HO.HMCC 09:59
PROVIDERS: PCP Internal Medicine; Visit Provider Internal Medicine
DX: J45.40 Moderate persistent asthma, uncomplicated (principal); R73.01 Impaired fasting glucose; E66.01 Morbid (severe) obesity due to excess calories; Z68.41 Body mass index [BMI] 40.0-44.9, adult

== ENCOUNTER → 2025-06-19 09:58 | Outpatient (BNVA) | payer BC, SELFPAY | PROVIDERS: PCP Internal Medicine; Visit Provider Internal Medicine | DX: J45.40 Moderate persistent asthma, uncomplicated (principal); R73.01 Impaired fasting glucose; J45.909 Unspecified asthma, uncomplicated; E66.01 Morbid (severe) obesity due to excess calories; Z68.41 Body mass index [BMI] 40.0-44.9, adult | CPT/HCPCS: 96127 ==

== ENCOUNTER 2025-07-31 10:23 | Outpatient (AMB) | payer BC, SELFPAY ==
--- NOTE | 2025-07-31 10:23 | MHC.OFFVIS ---
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 She is not having any ob/gyn physician concerns. She had a baby since she was last year. She delivered that baby at [facility] she ended up needing to be induced at 37 weeks because her blood pressures were creeping up the induction was pretty horrible with Melendez bulb and Pitocin 31 hour labor she delivered a 9 lb 9 oz boy vaginally. Afterwards they were watching her blood pressure but she said the tests were okay and they sent her home and a few hours later she needed to return again to the hospital with very severe symptoms of preeclampsia so she was hospitalized for preeclampsia. Her mother when she was young from complications of diabetes and hypertension and obesity she was over 300 lb and disabled. She the patient says she did not have any pre diabetes or diabetes in the . (there is notation of impaired glucose in her chart but her more recent screens appear negative.) She says she sees her primary care provider who talks to her about all these things as well every six-months and her next appointment is in November.. She works for the [employer] as does her and they have different routes but she walks 17,000 steps a day she is losing weight gradually. She is normotensive today she says her 14-year-old is very happy with is new baby brother. She and her use condoms for control and she is happy with that method it has never failed for her in 15 years. Pregnancies were planned. [facility] Surgical History No pertinent past surgical history Family History Father Cancer Mother HTN (hypertension) CVD (cardiovascular disease) Diabetes mellitus Maternal Grandmother No problems noted. Maternal Grandfather No problems noted. Paternal Grandfather History of heart attack Paternal Grandmother No problems noted. Son No problems noted. Social History Housing: House Patient Tobacco Use Status: Former Tobacco user Years Smoked: 1 year e-Cigarette/Vaping Use: Never Used Current occupational status: employed Cognitive needs: No Hearing needs: No Vision needs: No Female Reproductive History Menstrual Age of Menarche: 10 Duration of menses: 3-5 days Date of last menstrual period: 07/15/25 control method: none Total pregnancies: 2 Full term: 2 Date of last pap smear: 11/17/23 (negative pap smear, negative hpv ) History of abnormal pap smear: No Physical Exam Vital Signs: Last Vital Signs BP 118/72 07/31/25 10:31 BMI result Body Mass Index 40.6 Const General: healthy appearing, comfortable, no acute distress, well developed and alert Nutritional Appearance: average body habitus Orientation/consciousness: patient oriented x3 Limitations: no limitations HEENT Head: Yes normocephalic Neck Neck: Yes normal visual inspection Chest Chest palpation & inspection: normal inspection of the chest Breast/axilla inspection: normal inspection of the breasts and normal inspection of the axillae Breast/axilla palpation: normal palpation of the breasts and normal palpation of the axillae Resp Effort & Inspection: normal respiratory effort GI Inspection: Yes normal to inspection, No Abdominal wall edema and No distended Palpation (GI): Soft to palpation and nontender Other: Normal external exam vagina pink and moist cervix long close thick mobile nontender uterus anteverted mobile nontender adnexa nontender good tone with Kegel difficult to visualize cervix because thin Jonathan speculum was used. we will need Graves speculum at next exam. General: Yes bladder normal to palpation External Female Exam: normal external appearance and normal appearance of the urethra Speculum Exam - Vagina: normal appearance of the vagina, normal palpation and normal vaginal discharge Speculum Exam - Cervix: normal appearance of the cervix, normal palpation and nontender Bimanual exam- vagina & uterus: normal bimanual exam, normal palpation, uterine size normal, bladder normal to palpation, consistency normal, normal palpation, uterine mobility normal, uterine shape normal, No Cervical tenderness present, non-tender and no cervical motion tenderness Bimanual Exam- Adnexa, other: normal adnexae, no masses, normal and No adnexal tenderness Neuro General: patient oriented x3 Results Reviewed Results Reviewed: Name: Suman Egan Age/Sex: 27/F Attending: Padma Sheth CNM : 1995 Submitted by: Padma Sheth CNM Copies to: Jessica Ivy MD MR #: [id number] Status: DEP REF Collected: 11/17/23 Location: .LAB Received: 11/18/23 Interpretation Satisfactory for evaluation. Moderate inflammation. Negative for intraepithelial lesion or malignancy. Clinical Information LMP: 10/30/2023 Previous PAP test: 2021, neg, WNL Material Received ThinPrep-Cervical Copies To Jessica Ivy MD [address] [place] [address] Padma Sheth CNM [address] [place] [address] [place] [address] Electronically Signed By: ANASTASIIA Hunter (ASCP) 12/01/23 0655 The Pap Test is a screening procedure with the inherent possibility of both false negative and false positive results. Results should be interpreted in the context of historic and current clinical findings. Reliability of the Pap Test is enhanced by performing the test on a regular repetitive basis. Patient: Suman Egan Age/Sex: 27/F MR#: [id number] Page 1 of 1 Assessment & Plan Assessment & Plan (1) Encounter for routine gynecological examination: Code(s): Z01.419 - Encounter for gynecological examination (general) (routine) without abnormal findings Category: Medical (2) Well woman exam with routine gynecological exam: Code(s): Z01.419 - Encounter for gynecological examination (general) (routine) without abnormal findings Category: Medical (3) Cervical cancer screening: Comment: 11/17/2023 Pap is negative. Next Pap due 2026 with Co test. Code(s): Z12.4 - Encounter for screening for malignant neoplasm of cervix Category: Medical (4) Morbid obesity due to excess calories: Comment: She does 17,000 steps a day with her job. Is gradually losing weight, discussed. Code(s): E66.01 - Morbid (severe) obesity due to excess calories Category: Medical (5) History of pre-eclampsia: Comment: Was induced in pregnancies for elevated blood pressures severe preeclampsia develop and she had to be rehospitalized. Discussed being mindful of weight and blood pressure and risk for diabetes secondary to family history Code(s): Z86.79 - Personal history of other diseases of the circulatory system; Z87.59 - Personal history of other complications of , childbirth and the puerperium Category: Medical Plan -----Discussed in this visit the following: healthy balanced diet, regular and consistent exercise, getting recommended health screens, doing the best she can for her particular health concerns, kegel exercises, pap smear screening and followup recommendations, mammography screening and SBE, normal changes in cycles in her life stage--- . Her next Pap smear would be due in early 2026 with Co testing. She does not need any STI screening.. I recommend for her that her best focus for self-care would be working on losing weight in general she certainly walks enough with her job which is great for her health discussed the risks for her secondary to family history as well as her own personal history of having had elevated blood pressures in and severe preeclampsia and also having delivered a big baby points to possible glucose intolerance though she says she tested negative for GDM. She has a strong family history as well so anything she can do to help improve her health and lose weight will be to her advantage in the future. She and her are contemplating having another baby but financially it is tricky. Discussed getting in as best of health as possible before hand. She says she follows with her primary care provider least every 6 months and gets all appropriate lab work. Coding Level of Care Code Est Pt Prev Care 18-39y(16953) Diagnoses Encounter for routine gynecological examination Z01.419 Well woman exam with routine gynecological exam Z01.419 Cervical cancer screening Z12.4 Morbid obesity due to excess calories E66.01 History of pre-eclampsia Z86.79; Z87.59
[2025-07-31 10:31] VITALS: BP 118/72; BMI 40.6
--- OUTSIDE RECORDS SUMMARY | 2025-07-31 12:14 | XMS_ITS | Patient Health Record ---
Author Organization [facility] Address [address] [facility] [address] [place] [address] Care Team Providers [employer] Market Consultant Name Role Phone Jessica Ivy Primary Care Provider Unavailabl e Allergies Allergen (clinical drug ingredient) Drug/Non Drug Allergy documented on EMR Reaction Allergy Type Onset Date Status Shellfish (FN) shrimp (uncoded) anaphylaxis Allergy Active Reason For Referral No Information Medications Medication SIG (Take, Route, Frequency, Duration) Notes Start Date End Date Status Albuterol Sulfate 108 (90 Base) MCG/ACT 1 puff as needed Inhalation every 4 hrs Active busPIRone HCl 5 MG 1 tablet Orally as needed Active Symbicort 160-4.5 MCG/ACT 2 puffs Inhala tion Twice a day Active Problems Problem Type SNOMED Code ICD Code Onset Dates Problem Status W/U Status Risk Notes Problem Hallux valgus of right foot ([id number]) Hallux valgus of right foot (M20.11) Active confirmed Problem Hallux valgus of left foot ([id number]) Hallux valgus of left foot (M20.12) Active confirmed Plan Of Treatment Pending Test Test Name Order Date X ray : Foot, left 3v 11/06/2020 X ray : Foot, right 3v 11/06/2020 Insurance Providers Payer Name Payer Address Payer Phone Subscriber Number Group Number Insured Name Patient Relationship to Insured Coverage Start Date Coverage End Date [employer] and [employer] [facility] [address] [place] [phone] [id number] Suman Egan Self - patient is the insured Medical (General) History Medical History History ICD Code Asthma Anxiety
== END 2025-07-31 11:50 | disposition home or self-care (01) ==
LOC: HO.HWSM 10:23
PROVIDERS: PCP Internal Medicine; Visit Provider Advanced Practice Midwife
DX: Z01.419 Encounter for gynecological examination (general) (routine) without abnormal findings (principal); E66.01 Morbid (severe) obesity due to excess calories; Z68.41 Body mass index [BMI] 40.0-44.9, adult; Z86.79 Personal history of other diseases of the circulatory system; Z87.59 Personal history of other complications of pregnancy, childbirth and the puerperium
CPT/HCPCS: 99395; 99459